=== PATIENT | female | born 1955 | race Caucasian/White ===

== ENCOUNTER 2024-01-07 16:40 | Inpatient (IN) | payer MEDICARE, OTHER ==
[~2024-01-07] VITALS: Ht 165.1 cm; Wt 68.0 kg
[2024-01-07] MEDS ORDERED: BACL5TAB PO (17:14)
[2024-01-07] MEDS ORDERED: METO25TA3 PO (17:14)
[2024-01-07] MEDS ORDERED: LOSA100T31 PO (17:14)
[2024-01-07] MEDS ORDERED: METO-356 PO (17:14)
[2024-01-07] MEDS ORDERED: NIFE60TA83 PO (17:14)
[2024-01-07] MEDS ORDERED: HYDR12.55 PO (17:14)
[2024-01-07] MEDS ORDERED: CITA10SO3 PO (17:14)
[2024-01-07] MEDS ORDERED: ENOX40DI SQ (17:14)
[2024-01-07] MEDS ORDERED: ATOR40TA PO (17:14)
[2024-01-07] MEDS ORDERED: ASPI81TA31 PO (17:14)
[2024-01-07] MEDS ORDERED: MEGE400O5 PO (17:14)
[2024-01-07] MEDS ORDERED: MIRT-73 PO (17:14)
[2024-01-07] MEDS ORDERED: MELO-107 PO (17:14)
[2024-01-07 17:32] LABS: CREATININE 0.6 mg/dL (0.6-1.3); POTASSIUM 4.5 mmol/L (3.5-5.1)
[2024-01-07 17:36] LABS: CALCIUM 9.5 mg/dL (8.5-10.1)
[2024-01-08 01:30] VITALS: BP 117/75; TEMP 97.9; O2SAT 98
[2024-01-08] MEDS ORDERED: MAG HYDROX/AL HYDROX/SIMETH 30 ML LIQUID UDC PO PRN (02:45)
[2024-01-08] MEDS ORDERED: TEMAZEPAM 7.5 MG CAPSULE PO PRN ×2 (02:45)
[2024-01-08] MEDS ORDERED: MAGNESIUM HYDROXIDE 30 ML LIQUID UDC PO PRN (02:45)
[2024-01-08] MEDS ORDERED: ACETAMINOPHEN 325 MG TABLET PO PRN (02:45)
[2024-01-08] MEDS ORDERED: CLONAZEPAM 0.5 MG TABLET PO PRN ×2 (02:45)
[2024-01-08] MEDS: BLOOD SUGAR DIAGNOSTIC 1 EACH STRIP VI ONE (03:12)
[2024-01-08 08:20] VITALS: BP 117/63; TEMP 98.7; O2SAT 98
[2024-01-08] MEDS ORDERED: HYDR25TA4 PO (09:28)
[2024-01-08 17:38] VITALS: BP 107/67; TEMP 98.4; O2SAT 98
[2024-01-08] MEDS ORDERED: BACLOFEN 5 MG PO SCH (19:00)
[2024-01-08 20:00] VITALS: BP 100/66; TEMP 98.8; O2SAT 95
[2024-01-08] MEDS: MIRTAZAPINE 15 MG TABLET PO SCH (21:08)
[2024-01-08] MEDS: ATORVASTATIN 40 MG TABLET PO SCH (21:08)
[2024-01-08] MEDS: REMEDY ESSENTIAL ZINC PASTE 113 GM TOP SCH (21:11)
[2024-01-09 08:00] LABS: BASOPHILS # (AUTO) 0.1 K/UL (0.0-0.2); BASOPHILS % (AUTO) 0.7 % (0.0-2.0); EOSINOPHILS # (AUTO) 0.1 K/uL (0.0-0.7); EOSINOPHILS % (AUTO) 1.5 % (0.0-7.0); HEMATOCRIT 38.6 % (31.2-41.9); HEMOGLOBIN 13.2 g/dL (10.9-14.3); LYMPHOCYTES # (AUTO) 1.5 K/uL (0.8-4.8); LYMPHOCYTES % (AUTO) 18.8 % (20.5-51.5); MEAN CORPUSCULAR HEMOGLOBIN 31.4 uug (24.7-32.8); MEAN CORPUSCULAR HGB CONC 34 g/dL (32.3-35.6); MONOCYTES # (AUTO) 0.4 K/uL (0.1-1.30); MONOCYTES % (AUTO) 5.3 % (0.0-11.0); NEUTROPHILS # (AUTO) 5.7 K/uL (1.8-8.9); NEUTROPHILS % (AUTO) 73.7 % (38.5-71.5); PLATELET COUNT (AUTO) 326 K/uL (179-408); RED CELL DISTRIBUTION WIDTH 13.3 % (12.3-17.7); WHITE BLOOD COUNT (AUTO) 7.8 K/uL (3.8-11.8)
[2024-01-09 08:05] LABS: DIFFERENTIAL COMMENT 1
[2024-01-09 08:12] LABS: ALBUMIN 2.6 g/dL (3.4-5.0); BILIRUBIN,TOTAL 0.5 mg/dL (0.2-1.0); CALCIUM 9.1 mg/dL (8.5-10.1); CREATININE 0.6 mg/dL (0.6-1.3); MAGNESIUM 1.6 mg/dL (1.8-2.4); PHOSPHOROUS 2.6 mg/dL (2.5-4.9); POTASSIUM 3.5 mmol/L (3.5-5.1); TOTAL PROTEIN, SERUM 7.7 g/dL (6.4-8.2)
[2024-01-09 08:17] VITALS: BP 105/68; TEMP 98.1; O2SAT 97
[2024-01-09] MEDS ORDERED: Medication Not On Formulary EA (Meloxicam 15 MG) PO SCH (09:00)
[2024-01-09] MEDS ORDERED: Medication Not On Formulary EA (Losartan Potassium 100 MG) PO SCH (09:00)
[2024-01-09 09:01] LABS: THYROID STIMULATING HORMONE 2.031 mIU/mL (0.358-3.740)
[2024-01-09] MEDS: ASPIRIN 81 MG TAB.CHEW PO SCH (09:21)
[2024-01-09] MEDS: CITALOPRAM 20 MG TABLET PO SCH (09:21)
[2024-01-09] MEDS: BACLOFEN 10 MG TABLET PO SCH (09:22)
[2024-01-09] MEDS: ENOXAPARIN SODIUM 40 MG/0.4 ML DISP.SYRIN SQ SCH (09:24)
[2024-01-09] MEDS: METOPROLOL SUCCINATE XL 25 MG TAB.SR.24H PO SCH (09:29)
[2024-01-09] MEDS: MELOXICAM 7.5 MG TABLET PO SCH (09:30)
[2024-01-09] MEDS: HYDROCHLOROTHIAZIDE 25 MG TABLET PO SCH (09:31)
[2024-01-09] MEDS: MEGESTROL ACETATE 400 MG/10 ML LIQUID UDC PO SCH (09:31)
[2024-01-09] MEDS: LOSARTAN POTASSIUM 50 MG TABLET PO SCH (09:37)
[2024-01-09] MEDS: MAGNESIUM OXIDE 400 MG TABLET PO ONE (10:18)
[2024-01-09 16:42] VITALS: BP 101/60; TEMP 98.1; O2SAT 97
[2024-01-09 19:35] VITALS: BP 108/76; TEMP 98; O2SAT 97
[2024-01-11 02:55] VITALS: BP 84/53; TEMP 98.4
[2024-01-11 03:00] VITALS: BP 76/52; TEMP 98
[2024-01-11] MEDS ORDERED: ACET325T53 PO (08:55)
[2024-01-11] MEDS ORDERED: CITA20TA16 PO (08:55)
[2024-01-11] MEDS ORDERED: CLON0.5T4 PO (08:55)
[2024-01-11] MEDS ORDERED: MAG355OR18 PO (08:55)
[2024-01-11] MEDS ORDERED: PETR113P TP (08:55)
[2024-01-11] MEDS ORDERED: MAGN400O6 PO (08:55)
[2024-01-11] MEDS ORDERED: MIRT-93 PO (08:55)
[2024-01-11] MEDS ORDERED: TEMA7.5C2 PO (08:55)
[2024-01-11] MEDS ORDERED: NIFE60TA73 PO (10:55)
== END 2024-01-11 03:35 | disposition short-term general hospital (02) | DRG 885 ==
LOC: ER 16:43 → GPS 01-08 00:18
PROVIDERS: ADMIT Psychiatry & Neurology Psychiatry; ATTEND Internal Medicine
DX: F33.3 Major depressive disorder, recurrent, severe with psychotic symptoms (principal); E43 Unspecified severe protein-calorie malnutrition; R45.851 Suicidal ideations; I69.351 Hemiplegia and hemiparesis following cerebral infarction affecting right dominant side; D68.59 Other primary thrombophilia; Z81.8 Family history of other mental and behavioral disorders; F43.12 Post-traumatic stress disorder, chronic; X58.XXXA Exposure to other specified factors, initial encounter; Y92.89 Other specified places as the place of occurrence of the external cause; R40.4 Transient alteration of awareness; E87.6 Hypokalemia; Z79.01 Long term (current) use of anticoagulants; Z62.810 Personal history of physical and sexual abuse in childhood; Z66 Do not resuscitate; Z87.891 Personal history of nicotine dependence; Z91.51 Personal history of suicidal behavior; R94.31 Abnormal electrocardiogram [ECG] [EKG]; Z74.09 Other reduced mobility; G89.29 Other chronic pain; E83.42 Hypomagnesemia; E78.5 Hyperlipidemia, unspecified; I10 Essential (primary) hypertension
CPT/HCPCS: 36415; 83735; 84100; 84443; 85025; J1650; J8999

== ENCOUNTER 2024-01-11 04:08 | Inpatient (IN) | payer MEDICARE, OTHER ==
[~2024-01-11] VITALS: Ht 152.4 cm; Wt 61.2 kg
[2024-01-11] VITALS (56 sets, daily range): BP systolic 72–153; BP diastolic 44–128; TEMP 97.6–98.8; O2SAT 94–100
[~2024-01-11 04:08] MED LIST: ASPI81TA31 PO; ATOR40TA PO; BACL5TAB PO; ENOX40DI SQ; HYDR25TA4 PO; LOSA100T31 PO; MEGE400O5 PO; MELO-107 PO; METO-356 PO; METO25TA3 PO; NIFE60TA83 PO
[2024-01-11] MEDS ORDERED: REMEDY ESSENTIAL ZINC PASTE 113 GM TP PRN (04:45)
[2024-01-11] MEDS ORDERED: ONDANSETRON 4 MG/2 ML VIAL IV PRN (04:45)
[2024-01-11] MEDS: IV NS 1000 ML 1,000 ML IV ONE ×2 (04:45→11:21)
[2024-01-11] MEDS ORDERED: MAGNESIUM HYDROXIDE 30 ML LIQUID UDC PO PRN (04:45)
[2024-01-11] MEDS ORDERED: NOREPINEPHRINE 8MG/NS 250ML 250 ML IV PRN ×2 (05:00→11:15)
[2024-01-11 05:06] LABS: BASOPHILS % (AUTO) 0.2 % (0.0-2.0); HEMATOCRIT 37.8 % (31.2-41.9); HEMOGLOBIN 12.4 g/dL (10.9-14.3); LYMPHOCYTES # (AUTO) 0.7 K/uL (0.8-4.8); LYMPHOCYTES % (AUTO) 3.5 % (20.5-51.5); MEAN CORPUSCULAR HEMOGLOBIN 31.2 uug (24.7-32.8); MEAN CORPUSCULAR HGB CONC 33 g/dL (32.3-35.6); NEUTROPHILS # (AUTO) 17.9 K/uL (1.8-8.9); NEUTROPHILS % (AUTO) 91.3 % (38.5-71.5); PLATELET COUNT (AUTO) 313 K/uL (179-408); RED BLOOD CELL COUNT(AUTO) 3.98 MIL/uL (3.63-4.92); RED CELL DISTRIBUTION WIDTH 13.3 % (12.3-17.7); WHITE BLOOD COUNT (AUTO) 19.6 K/uL (3.8-11.8)
[2024-01-11 05:16] LABS: CALCIUM 8.8 mg/dL (8.5-10.1); CREATININE 1.1 mg/dL (0.6-1.3); POTASSIUM 3.7 mmol/L (3.5-5.1)
[2024-01-11 05:18] LABS: DIFFERENTIAL COMMENT 1
[2024-01-11 05:27] LABS: ALBUMIN 2.5 g/dL (3.4-5.0); BILIRUBIN,TOTAL 0.6 mg/dL (0.2-1.0); TOTAL PROTEIN, SERUM 7.3 g/dL (6.4-8.2)
[2024-01-11 05:33] LABS: MAGNESIUM 1.7 mg/dL (1.8-2.4); PHOSPHOROUS 4.3 mg/dL (2.5-4.9)
[2024-01-11] MEDS ORDERED: levoFLOXacin 750MG/D5W 150 ML IV ONE (05:33)
[2024-01-11] MEDS: levoFLOXacin 750 MG/D5W 150 ML PIGGYBACK IV ONE (05:34)
[2024-01-11] MEDS: IV NS 1000 ML 1,000 ML IV PRN ×2 (06:45→10:07)
[2024-01-11] MEDS ORDERED: POTASSIUM CHLORIDE 50 ML IV SCH (07:45)
[2024-01-11] MEDS ORDERED: ALBUMIN HUMAN 25% 100 ML IV ONE (07:45)
[2024-01-11] MEDS ORDERED: PETR113P TP (08:55)
[2024-01-11] MEDS ORDERED: CITA20TA16 PO (08:55)
[2024-01-11] MEDS ORDERED: MAG355OR18 PO (08:55)
[2024-01-11] MEDS ORDERED: MIRT-93 PO (08:55)
[2024-01-11] MEDS ORDERED: TEMA7.5C2 PO (08:55)
[2024-01-11] MEDS ORDERED: CLON0.5T4 PO (08:55)
[2024-01-11] MEDS ORDERED: ACET325T53 PO (08:55)
[2024-01-11] MEDS ORDERED: MAGN400O6 PO (08:55)
[2024-01-11 08:58] LABS: LACTIC ACID 4.7 mmol/L (0.4-2.0)
[2024-01-11] MEDS: ASPIRIN 81 MG TAB.CHEW PO SCH (10:04)
[2024-01-11] MEDS: MAGNESIUM SULFATE/D5W 100 ML IV SCH (10:04)
[2024-01-11] MEDS: ENOXAPARIN SODIUM 40 MG/0.4 ML DISP.SYRIN SQ SCH (10:05)
[2024-01-11] MEDS: CEFEPIME HCL 2 GM in IV DEXTROSE 5% 100 ML IV SCH (10:05)
[2024-01-11] MEDS ORDERED: NIFE60TA73 PO (10:55)
[2024-01-11 11:00] LABS: THYROID STIMULATING HORMONE 7.094 mIU/mL (0.358-3.740)
[2024-01-11] MEDS: levETIRAcetam IV 500 MG in IV DEXTROSE 5% 100 ML IV SCH (12:53)
[2024-01-11] MEDS: PHENYLEPHRINE IV 50 MG in IV NORMAL SALINE 245 ML IV PRN (13:04)
[2024-01-11] MEDS ORDERED: CEFEPIME HCL 2 GM in IV DEXTROSE 5% 100 ML IV SCH (14:00)
[2024-01-11 16:02] LABS: *BILIRUBIN,URIN NEGATIVE (NEGATIVE); *CLARITY,URINE CLEAR (CLEAR); *COLOR,URINE YELLOW (YELLOW); *KETONES,URINE 4+ (NEGATIVE); *PROTEIN,URINE NEGATIVE (NEGATIVE); *UROBILINOGEN,URINE 0.2 E.U./dl (NORMAL); LEUKOCYTE ESTERASE ,URINE NEGATIVE (NEGATIVE); NITRITE, URINE POSITIVE (NEGATIVE); PH,URINE 5.5 (5.0-8.0); UGLUCOSE NEGATIVE (NEGATIVE)
[2024-01-11] MEDS: MEGESTROL ACETATE 400 MG/10 ML LIQUID UDC PO SCH (16:08)
[2024-01-11 16:14] LABS: *BLOOD, URINE TRACE (NEGATIVE)
[2024-01-11 16:20] LABS: BACTERIA,URINE MANY /HPF (NONE SEEN); RBC,URINE NONE SEEN /HPF (0-3); SQUAMOUS EPITHELIAL CELL,UR FEW /HPF (NONE SEEN); WBC,URINE 0-3 /HPF (0-3)
[2024-01-11] MEDS: HEPARIN SODIUM,PORCINE 5,000 UNITS/ML VIAL IV ONE (17:58)
[2024-01-11] MEDS: HEPARIN/D5W DRIP 500 ML IV PRN (18:02)
[2024-01-11] MEDS ORDERED: IV D5/ 0.9% NACL 1,000 ML IV PRN (18:45)
[2024-01-11] MEDS: IV NS 1000 ML 1,000 ML IV SCH (18:46)
[2024-01-11 19:57] LABS: BASOPHILS % (AUTO) 0.2 % (0.0-2.0); EOSINOPHILS % (AUTO) 0.1 % (0.0-7.0); HEMATOCRIT 29.3 % (31.2-41.9); HEMOGLOBIN 9.6 g/dL (10.9-14.3); LYMPHOCYTES # (AUTO) 2.1 K/uL (0.8-4.8); LYMPHOCYTES % (AUTO) 17.1 % (20.5-51.5); MEAN CORPUSCULAR HEMOGLOBIN 30.9 uug (24.7-32.8); MEAN CORPUSCULAR HGB CONC 33 g/dL (32.3-35.6); MEAN CORPUSCULAR VOLUME 93.9 fL (75.5-95.3); MONOCYTES # (AUTO) 0.9 K/uL (0.1-1.30); MONOCYTES % (AUTO) 7.3 % (0.0-11.0); NEUTROPHILS # (AUTO) 9.2 K/uL (1.8-8.9); NEUTROPHILS % (AUTO) 75.3 % (38.5-71.5); PLATELET COUNT (AUTO) 284 K/uL (179-408); RED BLOOD CELL COUNT(AUTO) 3.12 MIL/uL (3.63-4.92); RED CELL DISTRIBUTION WIDTH 13.2 % (12.3-17.7); WHITE BLOOD COUNT (AUTO) 12.2 K/uL (3.8-11.8)
[2024-01-11 19:58] LABS: DIFFERENTIAL COMMENT 1
[2024-01-11] MEDS: IV D5/ 0.9% NACL 1,000 ML IV SCH (20:04)
[2024-01-11 20:11] LABS: ALBUMIN 1.8 g/dL (3.4-5.0); BILIRUBIN,TOTAL 0.3 mg/dL (0.2-1.0); CALCIUM 6.8 mg/dL (8.5-10.1); CREATININE 0.5 mg/dL (0.6-1.3); TOTAL PROTEIN, SERUM 5.4 g/dL (6.4-8.2)
[2024-01-11 20:15] LABS: POTASSIUM 2.7 mmol/L (3.5-5.1)
[2024-01-11] MEDS: ATORVASTATIN 40 MG TABLET PO SCH (21:00)
[2024-01-11] MEDS: POTASSIUM CHLORIDE 50 ML IV SCH (21:22)
[2024-01-12] VITALS (90 sets, daily range): BP systolic 70–109; BP diastolic 49–94; TEMP 98–98.6; O2SAT 95–100
[2024-01-12] MEDS ORDERED: levoFLOXacin 500 MG/D5W 500 MG in PREMIXED 1 EACH IV SCH (05:00)
[2024-01-12 07:07] LABS: BASOPHILS # (AUTO) 0.1 K/UL (0.0-0.2); BASOPHILS % (AUTO) 0.6 % (0.0-2.0); EOSINOPHILS # (AUTO) 0.1 K/uL (0.0-0.7); EOSINOPHILS % (AUTO) 0.6 % (0.0-7.0); HEMATOCRIT 29.8 % (31.2-41.9); HEMOGLOBIN 10.1 g/dL (10.9-14.3); LYMPHOCYTES % (AUTO) 22.6 % (20.5-51.5); MEAN CORPUSCULAR HEMOGLOBIN 31.3 uug (24.7-32.8); MEAN CORPUSCULAR HGB CONC 34 g/dL (32.3-35.6); MEAN CORPUSCULAR VOLUME 92.4 fL (75.5-95.3); MONOCYTES # (AUTO) 0.8 K/uL (0.1-1.30); MONOCYTES % (AUTO) 5.9 % (0.0-11.0); NEUTROPHILS # (AUTO) 9.4 K/uL (1.8-8.9); NEUTROPHILS % (AUTO) 70.3 % (38.5-71.5); PLATELET COUNT (AUTO) 307 K/uL (179-408); RED BLOOD CELL COUNT(AUTO) 3.22 MIL/uL (3.63-4.92); RED CELL DISTRIBUTION WIDTH 13.4 % (12.3-17.7); WHITE BLOOD COUNT (AUTO) 13.4 K/uL (3.8-11.8)
[2024-01-12 07:12] LABS: DIFFERENTIAL COMMENT 1
[2024-01-12] MEDS: PHENYLEPHRINE IV 100 MG in IV NORMAL SALINE 240 ML IV PRN (07:16)
[2024-01-12 07:20] LABS: CALCIUM 7.2 mg/dL (8.5-10.1); CREATININE 0.6 mg/dL (0.6-1.3); MAGNESIUM 1.7 mg/dL (1.8-2.4); PHOSPHOROUS 1.4 mg/dL (2.5-4.9); POTASSIUM 3.5 mmol/L (3.5-5.1)
[2024-01-12] MEDS: IV D5/ 0.9% NACL 1,000 ML IV PRN (07:49)
[2024-01-12] MEDS: CITALOPRAM 20 MG TABLET PO SCH (08:24)
[2024-01-12] MEDS: MAGNESIUM SULFATE/D5W 100 ML IV SCH (08:24)
[2024-01-12] MEDS: ASPIRIN 81 MG TAB.CHEW PO SCH (08:25)
[2024-01-12] MEDS ORDERED: POTASSIUM CHLORIDE 50 ML IV SCH (08:45)
[2024-01-12] MEDS ORDERED: POTASSIUM CHLORIDE 20 MEQ TAB.PRT.SR PO ONE (08:45)
[2024-01-12] MEDS ORDERED: ENOXAPARIN SODIUM 40 MG/0.4 ML DISP.SYRIN SQ SCH (09:00)
[2024-01-12] MEDS: POTASSIUM CHLORIDE 20 MEQ POWDER PACKET PO ONE (09:06)
[2024-01-12] MEDS: POTASSIUM PHOSPHATE MM 15 MMOL in IV NORMAL SALINE 250 ML IV ONE (10:16)
[2024-01-12] MEDS: ENOXAPARIN SODIUM 60 MG/0.6 ML DISP.SYRIN SQ SCH (13:02)
[2024-01-12] MEDS: CLONAZEPAM 0.5 MG TABLET PO PRN (15:10)
[2024-01-12] MEDS: REMEDY ESSENTIAL ZINC PASTE 113 GM TOP SCH (20:16)
[2024-01-12 22:34] LABS: THYROID STIMULATING HORMONE 0.88 mIU/mL (0.358-3.740)
[2024-01-13] VITALS (100 sets, daily range): BP systolic 64–120; BP diastolic 34–92; TEMP 97.7–99.1; O2SAT 88–100
[2024-01-13 05:15] LABS: CREATININE 0.5 mg/dL (0.6-1.3); MAGNESIUM 1.7 mg/dL (1.8-2.4); POTASSIUM 3.5 mmol/L (3.5-5.1)
[2024-01-13] MEDS ORDERED: POTASSIUM CHLORIDE 50 ML IV SCH (08:00)
[2024-01-13] MEDS: POTASSIUM CHLORIDE 20 MEQ POWDER PACKET PO ONE (08:24)
[2024-01-13] MEDS: MAGNESIUM SULFATE/D5W 100 ML IV SCH (08:24)
[2024-01-13] MEDS: POTASSIUM PHOSPHATE MM 15 MMOL in IV NORMAL SALINE 250 ML IV ONE (09:25)
[2024-01-13] MEDS: IV NORMAL SALINE 500 ML IV ONE (09:27)
[2024-01-13] MEDS: POTASSIUM CHLORIDE 50 ML IV SCH (09:28)
[2024-01-13 10:18] LABS: BASOPHILS # (AUTO) 0.1 K/UL (0.0-0.2); BASOPHILS % (AUTO) 0.6 % (0.0-2.0); EOSINOPHILS % (AUTO) 0.4 % (0.0-7.0); LYMPHOCYTES # (AUTO) 2.2 K/uL (0.8-4.8); LYMPHOCYTES % (AUTO) 26.5 % (20.5-51.5); MEAN CORPUSCULAR HEMOGLOBIN 31.2 uug (24.7-32.8); MEAN CORPUSCULAR HGB CONC 32 g/dL (32.3-35.6); MEAN CORPUSCULAR VOLUME 96.1 fL (75.5-95.3); MONOCYTES # (AUTO) 0.4 K/uL (0.1-1.30); NEUTROPHILS # (AUTO) 5.7 K/uL (1.8-8.9); NEUTROPHILS % (AUTO) 67.5 % (38.5-71.5); PLATELET COUNT (AUTO) 215 K/uL (179-408); RED CELL DISTRIBUTION WIDTH 13.4 % (12.3-17.7); WHITE BLOOD COUNT (AUTO) 8.5 K/uL (3.8-11.8)
[2024-01-13 10:25] LABS: DIFFERENTIAL COMMENT 1; RED BLOOD CELL COUNT(AUTO) 2.17 MIL/uL (3.63-4.92)
[2024-01-13 10:30] LABS: HEMOGLOBIN 6.8 g/dL (10.9-14.3)
[2024-01-13 10:31] LABS: HEMATOCRIT 20.8 % (31.2-41.9)
[2024-01-13 10:32] LABS: ALANINE AMINOTRANSFERASE 12 U/L (14-59); ALBUMIN 1.7 g/dL (3.4-5.0); ALKALINE PHOSPHATASE 72 U/L (50-136); ASPARTATE AMINOTRANSFERASE 29 U/L (15-37); BILIRUBIN,TOTAL 0.3 mg/dL (0.2-1.0); CALCIUM 7.2 mg/dL (8.5-10.1); CARBON DIOXIDE 18 mmol/L (21-32); CHLORIDE 109 mmol/L (98-107); CREATININE 0.4 mg/dL (0.6-1.3); GLUCOSE 127 mg/dL (74-106); POTASSIUM 3.5 mmol/L (3.5-5.1); SODIUM SERUM 137 mmol/L (136-145); TOTAL PROTEIN, SERUM 4.9 g/dL (6.4-8.2); UREA NITROGEN, BLOOD 13 mg/dL (7-18)
[2024-01-13] MEDS: PANTOPRAZOLE SODIUM 40 MG VIAL IV SCH (10:59)
[2024-01-13 11:54] LABS: LYMPHOCYTES % (MANUAL) 27 % (20-40); MONOCYTES % (MANUAL) 5 % (2-10); NEUTROPHILS % (MANUAL) 68 % (42-75); PLATELET ESTIMATE ADEQUATE
[2024-01-13 18:31] LABS: HEMATOCRIT 23.6 % (31.2-41.9); HEMOGLOBIN 7.7 g/dL (10.9-14.3)
[2024-01-13] MEDS ORDERED: KETAMINE HCL 500 MG/5 ML VIAL ONE (19:21)
[2024-01-13] MEDS: GOLYTELY 4000 ML BOTTLE ONE (21:50)
[2024-01-13] MEDS: GOLYTELY 4000 ML BOTTLE PO ONE (22:43)
[2024-01-14] VITALS (89 sets, daily range): BP systolic 97–130; BP diastolic 64–93; TEMP 97.6–98.6; O2SAT 83–100
[2024-01-14 02:12] LABS: HEMATOCRIT 32.8 % (31.2-41.9); HEMOGLOBIN 10.9 g/dL (10.9-14.3)
[2024-01-14 09:20] LABS: CALCIUM 7.1 mg/dL (8.5-10.1); CARBON DIOXIDE 21 mmol/L (21-32); CHLORIDE 109 mmol/L (98-107); CREATININE 0.4 mg/dL (0.6-1.3); GLUCOSE 86 mg/dL (74-106); POTASSIUM 2.9 mmol/L (3.5-5.1); SODIUM SERUM 139 mmol/L (136-145); UREA NITROGEN, BLOOD 5 mg/dL (7-18)
[2024-01-14 10:24] LABS: HEMATOCRIT 26.3 % (31.2-41.9); HEMOGLOBIN 8.9 g/dL (10.9-14.3)
[2024-01-14] MEDS: IV NS 1000 ML 1,000 ML IV ONE (11:47)
[2024-01-14] MEDS: POTASSIUM CHLORIDE 50 ML IV SCH (11:53)
[2024-01-14] MEDS: CEFEPIME HCL 2 GM in IV DEXTROSE 5% 100 ML IV SCH (14:56)
[2024-01-14 18:20] LABS: HEMATOCRIT 26.1 % (31.2-41.9); HEMOGLOBIN 8.9 g/dL (10.9-14.3)
[2024-01-15] VITALS (39 sets, daily range): BP systolic 71–129; BP diastolic 51–108; TEMP 97.6–98.7; O2SAT 96–100
[2024-01-15 02:23] LABS: HEMATOCRIT 28.1 % (31.2-41.9); HEMOGLOBIN 9.5 g/dL (10.9-14.3)
[2024-01-15 04:58] LABS: BASOPHILS % (AUTO) 0.7 % (0.0-2.0); EOSINOPHILS # (AUTO) 0.1 K/uL (0.0-0.7); EOSINOPHILS % (AUTO) 2.4 % (0.0-7.0); HEMATOCRIT 27.9 % (31.2-41.9); HEMOGLOBIN 9.5 g/dL (10.9-14.3); LYMPHOCYTES % (AUTO) 37.1 % (20.5-51.5); MEAN CORPUSCULAR HEMOGLOBIN 29.8 uug (24.7-32.8); MEAN CORPUSCULAR HGB CONC 34 g/dL (32.3-35.6); MEAN CORPUSCULAR VOLUME 87.2 fL (75.5-95.3); MONOCYTES # (AUTO) 0.3 K/uL (0.1-1.30); MONOCYTES % (AUTO) 6.4 % (0.0-11.0); NEUTROPHILS # (AUTO) 2.9 K/uL (1.8-8.9); NEUTROPHILS % (AUTO) 53.4 % (38.5-71.5); PLATELET COUNT (AUTO) 133 K/uL (179-408); RED CELL DISTRIBUTION WIDTH 14.9 % (12.3-17.7); WHITE BLOOD COUNT (AUTO) 5.4 K/uL (3.8-11.8)
[2024-01-15 05:08] LABS: MAGNESIUM 1.4 mg/dL (1.8-2.4); PHOSPHOROUS 2.3 mg/dL (2.5-4.9)
[2024-01-15] MEDS: POTASSIUM PHOSPHATE MM 15 MMOL in IV NORMAL SALINE 250 ML IV ONE (08:26)
[2024-01-15] MEDS: IV D5 1/2 NS 1000 ML 1,000 ML IV SCH (09:41)
[2024-01-15] MEDS: MAGNESIUM SULFATE/D5W 100 ML IV SCH (12:42)
[2024-01-15] MEDS: ACETAMINOPHEN 325 MG TABLET PO PRN (20:23)
[2024-01-15] MEDS: MEROPENEM 1 G in IV NORMAL SALINE 100 ML IV SCH (21:01)
[2024-01-16] VITALS (15 sets, daily range): BP systolic 91–118; BP diastolic 62–86; TEMP 97.7–98.9; O2SAT 98–100
[2024-01-16] MEDS: IV NORMAL SALINE 500 ML IV ONE (03:48)
[2024-01-16 05:13] LABS: BASOPHILS % (AUTO) 1.2 % (0.0-2.0); EOSINOPHILS # (AUTO) 0.2 K/uL (0.0-0.7); EOSINOPHILS % (AUTO) 5.2 % (0.0-7.0); HEMATOCRIT 26.6 % (31.2-41.9); LYMPHOCYTES # (AUTO) 1.5 K/uL (0.8-4.8); LYMPHOCYTES % (AUTO) 38.4 % (20.5-51.5); MEAN CORPUSCULAR HEMOGLOBIN 29.5 uug (24.7-32.8); MEAN CORPUSCULAR HGB CONC 34 g/dL (32.3-35.6); MEAN CORPUSCULAR VOLUME 87.3 fL (75.5-95.3); MONOCYTES # (AUTO) 0.2 K/uL (0.1-1.30); MONOCYTES % (AUTO) 5.9 % (0.0-11.0); NEUTROPHILS # (AUTO) 1.9 K/uL (1.8-8.9); NEUTROPHILS % (AUTO) 49.3 % (38.5-71.5); PLATELET COUNT (AUTO) 115 K/uL (179-408); RED BLOOD CELL COUNT(AUTO) 3.05 MIL/uL (3.63-4.92); RED CELL DISTRIBUTION WIDTH 14.7 % (12.3-17.7); WHITE BLOOD COUNT (AUTO) 3.9 K/uL (3.8-11.8)
[2024-01-16 05:22] LABS: CALCIUM 7.6 mg/dL (8.5-10.1); CARBON DIOXIDE 25 mmol/L (21-32); CHLORIDE 108 mmol/L (98-107); CREATININE 0.4 mg/dL (0.6-1.3); DIFFERENTIAL COMMENT 1; GLUCOSE 103 mg/dL (74-106); POTASSIUM 2.8 mmol/L (3.5-5.1); SODIUM SERUM 139 mmol/L (136-145); UREA NITROGEN, BLOOD 2 mg/dL (7-18)
[2024-01-16] MEDS: POTASSIUM CHLORIDE 50 ML IV SCH (08:02)
[2024-01-16] MEDS: CALCIUM GLUCONATE IV 2 GM in IV NORMAL SALINE 100 ML IV ONE (09:06)
[2024-01-17] VITALS (23 sets, daily range): BP systolic 86–114; BP diastolic 55–93; TEMP 97.5–97.7; O2SAT 97–100
[2024-01-17 05:21] LABS: BASOPHILS # (AUTO) 0.1 K/UL (0.0-0.2); BASOPHILS % (AUTO) 1.1 % (0.0-2.0); EOSINOPHILS # (AUTO) 0.2 K/uL (0.0-0.7); EOSINOPHILS % (AUTO) 4.6 % (0.0-7.0); HEMATOCRIT 28.6 % (31.2-41.9); HEMOGLOBIN 9.5 g/dL (10.9-14.3); LYMPHOCYTES # (AUTO) 1.9 K/uL (0.8-4.8); LYMPHOCYTES % (AUTO) 38.5 % (20.5-51.5); MEAN CORPUSCULAR HEMOGLOBIN 29.4 uug (24.7-32.8); MEAN CORPUSCULAR HGB CONC 33 g/dL (32.3-35.6); MEAN CORPUSCULAR VOLUME 88.3 fL (75.5-95.3); MONOCYTES # (AUTO) 0.3 K/uL (0.1-1.30); MONOCYTES % (AUTO) 5.9 % (0.0-11.0); NEUTROPHILS # (AUTO) 2.4 K/uL (1.8-8.9); NEUTROPHILS % (AUTO) 49.9 % (38.5-71.5); PLATELET COUNT (AUTO) 129 K/uL (179-408); RED BLOOD CELL COUNT(AUTO) 3.24 MIL/uL (3.63-4.92); RED CELL DISTRIBUTION WIDTH 14.6 % (12.3-17.7); WHITE BLOOD COUNT (AUTO) 4.9 K/uL (3.8-11.8)
[2024-01-17] MEDS: CITALOPRAM 20 MG TABLET PO SCH (08:20)
[2024-01-17] MEDS: ENSURE WITH FIBER 237 ML LIQUID (CHOCOLATE) PO SCH (16:22)
[2024-01-18] VITALS (10 sets, daily range): BP systolic 93–117; BP diastolic 63–79; TEMP 97–98.5; O2SAT 96–100
[2024-01-18 05:31] LABS: BASOPHILS % (AUTO) 0.6 % (0.0-2.0); EOSINOPHILS # (AUTO) 0.2 K/uL (0.0-0.7); EOSINOPHILS % (AUTO) 4.4 % (0.0-7.0); HEMATOCRIT 25.2 % (31.2-41.9); HEMOGLOBIN 8.7 g/dL (10.9-14.3); LYMPHOCYTES # (AUTO) 1.4 K/uL (0.8-4.8); LYMPHOCYTES % (AUTO) 33.2 % (20.5-51.5); MEAN CORPUSCULAR HEMOGLOBIN 30.2 uug (24.7-32.8); MEAN CORPUSCULAR HGB CONC 34 g/dL (32.3-35.6); MEAN CORPUSCULAR VOLUME 87.7 fL (75.5-95.3); MONOCYTES # (AUTO) 0.4 K/uL (0.1-1.30); MONOCYTES % (AUTO) 8.3 % (0.0-11.0); NEUTROPHILS # (AUTO) 2.3 K/uL (1.8-8.9); NEUTROPHILS % (AUTO) 53.5 % (38.5-71.5); PLATELET COUNT (AUTO) 147 K/uL (179-408); RED BLOOD CELL COUNT(AUTO) 2.87 MIL/uL (3.63-4.92); RED CELL DISTRIBUTION WIDTH 14.7 % (12.3-17.7); WHITE BLOOD COUNT (AUTO) 4.3 K/uL (3.8-11.8)
[2024-01-18 05:37] LABS: CALCIUM 7.6 mg/dL (8.5-10.1); CREATININE 0.5 mg/dL (0.6-1.3); POTASSIUM 2.8 mmol/L (3.5-5.1)
[2024-01-18] MEDS: POTASSIUM CHLORIDE 20 MEQ POWDER PACKET GT ONE (09:02)
[2024-01-18] MEDS: POTASSIUM CHLORIDE 50 ML IV SCH (09:02)
[2024-01-18] MEDS ORDERED: MERO1VIA23 IV (11:23)
[2024-01-18] MEDS ORDERED: CLON0.5T4 PO (11:23)
[2024-01-18] MEDS ORDERED: LEVE500T9 PO (11:23)
[2024-01-18] MEDS ORDERED: PANT40TA2 PO (11:23)
[2024-01-18] MEDS ORDERED: CITA20TA16 PO (11:23)
[2024-01-18] MEDS ORDERED: POTASSIUM CHLORIDE 20 MEQ TAB.PRT.SR PO ONE (11:30)
[2024-01-18] MEDS ORDERED: levETIRAcetam 500 MG TABLET PO SCH (21:00)
== END 2024-01-18 18:00 | DRG 871 ==
LOC: ER 04:14 → CCU 04:47 → TELE3 01-18 07:10
PROVIDERS: ADMIT Nurse Practitioner Family; ATTEND Nurse Practitioner Family
PROC: 02HV33Z Insertion of Infusion Device into Superior Vena Cava, Percutaneous Approach (ICD-10-PCS; principal; 2024-01-11)
PROC: 30243N1 Transfusion of Nonautologous Red Blood Cells into Central Vein, Percutaneous Approach (ICD-10-PCS; 2024-01-13)
DX: A41.9 Sepsis, unspecified organism (principal); I21.A1 Myocardial infarction type 2; R65.21 Severe sepsis with septic shock; N39.0 Urinary tract infection, site not specified; Z16.24 Resistance to multiple antibiotics; E44.0 Moderate protein-calorie malnutrition; F33.3 Major depressive disorder, recurrent, severe with psychotic symptoms; R45.851 Suicidal ideations; I51.81 Takotsubo syndrome; D62 Acute posthemorrhagic anemia; D68.59 Other primary thrombophilia; K92.1 Melena; Z66 Do not resuscitate; I95.9 Hypotension, unspecified; B96.20 Unspecified Escherichia coli [E. coli] as the cause of diseases classified elsewhere; E88.09 Other disorders of plasma-protein metabolism, not elsewhere classified; I48.91 Unspecified atrial fibrillation; R73.9 Hyperglycemia, unspecified; R79.89 Other specified abnormal findings of blood chemistry; R56.9 Unspecified convulsions; F43.12 Post-traumatic stress disorder, chronic; X58.XXXD Exposure to other specified factors, subsequent encounter; Z79.899 Other long term (current) drug therapy; Z88.0 Allergy status to penicillin; Z91.199 Patient's noncompliance with other medical treatment and regimen due to unspecified reason; Z86.73 Personal history of transient ischemic attack (TIA), and cerebral infarction without residual deficits; E78.5 Hyperlipidemia, unspecified
CPT/HCPCS: 36415; 70030-TC; 70450; 71045; 83605; 83735; 83921; 84100; 84443; 84484; 85018; 85025; 85730; 86850; 86900; 86901; 86920; 87040; 93005; 93307; 95819; A4606; C1758; G0378; J0610; J0692; J1644; J1650; J1953; J1956; J2185; J2470; J3475; J3480; J3490; J7040; J7042; J8999; P9016